=== PATIENT | male | born 1995 | race Hispanic/Latino ===

== ENCOUNTER → 2023-06-21 | Emergency (ER) | payer OTHER ==
[~2023-06-21] MED LIST: FAMOTIDINE 20 MG/2 ML VIAL IV ONE; MAGNESIUM CITRATE 300 ML BOT ONE; NA CHLORIDE 0.9% 1,000 ML ONE
[2023-06-21 19:38] LABS: Hematocrit 39.3 % (39.6-49.0); Lymphocytes % 26.6 % (15.3-44.8); MCV 86.8 fL (80-100); MPV 7.7 fL (7.6-11.3); Platelets 357 thou/uL (152-406); RBC Red Blood Cell Count 4.53 M/uL (4.33-5.43)
[2023-06-21 19:47] LABS: Albumin 3.7 g/dL (3.4-5.0); Bilirubin Total 0.5 mg/dL (0.2-1.0); Potassium 4.6 mEq/L (3.5-5.1); Protein, Total 7.7 g/dL (6.4-8.2)
--- NOTE | 2023-06-21 20:25 | RAD REPORT ---
EXAM DESCRIPTION: CTAbdomen Pelvis W Contrast - 06/21/2023 8:18 pm CLINICAL HISTORY: Abdominal pain. ABD PAIN COMPARISON: No comparisons TECHNIQUE: Biphasic CT imaging of the abdomen and pelvis was performed with 100 ml non-ionic IV cont rast. All CT scans are performed using dose optimization technique as appropriate and may include automated exposure control or mA/KV adjustment according to patient size. FINDINGS: The lung bases are clear. The liver, spleen, pancreas, adrenal glands and kidneys are within normal limits. No bowel obstruction, free air, free fluid or abscess. Prominent stool is retained throughout the col on. The appendix is normal. No evidence of significant lymphadenopathy. No suspicious bony findings. IMPRESSION: No acute intra-abdominal or pelvic finding. Prominent constipation.
--- NOTE | 2023-06-21 20:43 | ER ---
Nurse's Notes [facility] Name: Marcelo Schmitt Age: 27 yrs Sex: Male : 1995 Arrival Date: 06/21/2023 Time: 18:30 Bed 20 Private MD: Diagnosis: Constipation Presentation: 06/21 18:39 Chief complaint: Patient states: Abdominal pain for 4 days, no BM for 3 days. No fever. ll1 Coronavirus screen: Client denies travel out of the [place] in the last 14 days. At this time, the client does not indicate any symptoms associated with coronavirus-19. Ebola Screen: Patient denies travel to an Ebola-affected area in the 21 days before illness onset. Initial Sepsis Screen: Does the patient meet any 2 criteria? No. Patient's initial sepsis screen is negative. Does the patient have a suspected source of infection? Yes: Acute abdominal pain. Risk Assessment: Do you want to hurt yourself or someone else? Patient reports no desire to harm self or others. Onset of symptoms was June 18, 2023. 18:39 Method Of Arrival: Law Enforcement: correctional managed ll1 18:39 Acuity: LAUREN 3 ll1 Historical: - Allergies: 18:40 PENICILLINS; ll1 - PMHx: 18:40 None; ll1 - PSHx: 18:40 None; ll1 - Immunization history:: Adult Immunizations up to date. - Social history:: Smoking status: Patient denies any tobacco usage or history of. Screenin:24 [facility] ED Fall Risk Assessment (Adult) History of falling in the last 3 months, lg3 including since admission No falls in past 3 months (0 pts). Abuse screen: Denies threats or abuse. Denies injuries from another. Nutritional screening: No deficits noted. Tuberculosis screening: No symptoms or risk factors identified. Assessment: 19:20 General: Appears comfortable, Behavior is calm, cooperative. Pain: Complains of pain in ha1 abdomen Pain does not radiate. Pain currently is 7 out of 10 on a pain scale. Neuro: Level of Consciousness is awake, alert, obeys commands, Oriented to person, place, time, situation. Cardiovascular: Patient's skin is warm and dry. Respiratory: Airway is patent Respiratory effort is even, unlabored, Respiratory pattern is regular, symmetrical. GI: Abdomen is round non-distended, Bowel sounds present X 4 quads. Abd is soft and non tender X 4 quads. Derm: Skin is normal. 21:23 Reassessment: Patient appears in no apparent distress at this time. No changes from lg3 previously documented assessment. Patient and/or family updated on plan of care and expected duration. Pain level reassessed. Patient is alert, oriented x 3, equal unlabored respirations, skin warm/dry/pink. Vital Signs: 18:39 BP 155 / 102; Pulse 69; Resp 17; Temp 98.3(O); Pulse Ox 95% on R/A; Weight 85.73 kg; ll1 Height 5 ft. 3 in. ; Pain 0/10; 21:24 BP 141 / 89; Pulse 72; Resp 17 S; Temp 98.6(TE); Pulse Ox 98% on R/A; lg3 18:39 Body Mass Index 33.48 (85.73 kg, 160.02 cm) ll1 18:39 Pain Scale: Adult ll1 ED Course: 18:34 Patient arrived in ED. ll1 18:35 Arm band placed on Patient placed in an exam room, on a stretcher. ll1 18:36 [facility] Stanley F[facility]-C [facility] kb 18:36 Jerica Kendrick MD is Attending Physician. kb 18:40 Triage completed. ll1 19:21 Meaghan Roberto, RN is Primary Nurse. ha1 19:26 CBC with Diff Sent. ha1 19:26 CMP Sent. ha1 19:26 Lipase Sent. ha1 20:[address] via stretcher. nj 20:20 CT Abd/Pelvis - IV Contrast Only In Process Unspecified. EDMS 20:24 CT completed. Patient tolerated procedure well. nj 20:26 Patient moved back from CT. nj 21:24 Patient has correct armband on for positive identification. lg3 21:24 No provider procedures requiring assistance completed. IV discontinued, intact, lg3 bleeding controlled, No redness/swelling at site. Pressure dressing applied. Administered Medications: 19:26 Drug: NS 0.9% IV 1000 ml IV at 1 bolus Per protocol; 1000 mL bolus Route: IV; Rate: 1 ha1 bolus; Site: right antecubital; 21:23 Follow up: IV Status: Completed infusion; IV Intake: 1000ml lg3 19:26 Drug: Famotidine IVP 20 mg IVP once; dilute with 10 mL 0.9% NaCl; give over 2 minutes ha1 Route: IVP; Site: right antecubital; 21:23 Follow up: Response: No adverse reaction lg3 20:47 Drug: Magnesium Citrate PO Liquid 300 ml PO once Route: PO; as9 21:23 Follow up: Response: No adverse reaction lg3 Medication: 21:24 VIS not applicable for this client. lg3 Intake: 21:23 IV: 1000ml; Total: 1000ml. lg3 Outcome: 20:42 Discharge ordered by MD. lezama 21:24 Discharged to [facility] lg3 21:24 Condition: stable 21:24 Discharge instructions given to patient, Instructed on discharge instructions, follow up and referral plans. Demonstrated understanding of instructions, follow-up care, 21:25 Patient left the ED. lg3 Signatures: Dispatcher [employer] EDMS Radha Stanley, PECAN GATHERER-C PECAN GATHERER-Ckb Charles Jamison Lacie RN RN lg3 Nimisha Riddle RN RN ll1 Meaghan Roberto RN RN ha1 Francisco Santiago, HILARY RN as9
--- NOTE | 2023-06-21 20:43 | EDPHYS ---
Physician Documentation [facility] Name: Marcelo Schmitt Age: 27 yrs Sex: Male : 1995 Arrival Date: 06/21/2023 Time: 18:30 Bed 20 Private MD: ED Physician Jerica Kendrick HPI: 06/21 20:40 This 27 yrs old Male presents to ER via Law Enforcement with complaints of kb Abdominal Pain. 20:40 Pt is a 27 year old male who presents for abd pain for 4 days and constipation. States kb pain is worse after eating. States he had a small BM this morning. Reports pain is to upper abd. Denies n/v, fever. Historical: - Allergies: 18:40 PENICILLINS; ll1 - PMHx: 18:40 None; ll1 - PSHx: 18:40 None; ll1 - Immunization history:: Adult Immunizations up to date. - Social history:: Smoking status: Patient denies any tobacco usage or history of. ROS: 20:41 Constitutional: Negative for fever, chills, and weight loss, kb 20:41 Abdomen/GI: Positive for abdominal pain, constipation, Negative for nausea and vomiting, 20:41 All other systems are negative, Exam: 20:41 Constitutional: This is a well developed, well nourished patient who is awake, alert, kb and in no acute distress. Head/Face: Normocephalic, atraumatic. ENT: Moist Mucous membranes Cardiovascular: Regular rate Respiratory: Respirations even and unlabored. No increased work of breathing. Talking in full sentences Skin: Warm, dry with normal turgor. Normal color. MS/ Extremity: Pulses equal, no cyanosis. Neurovascular intact. Full, normal range of motion. Neuro: Awake and alert, GCS 15, oriented to person, place, time, and situation. Moves all extremities. Normal gait. 20:41 Abdomen/GI: Inspection: abdomen appears normal, Bowel sounds: normal, Palpation: soft, in all quadrants, mild abdominal tenderness, in the left upper quadrant, Vital Signs: 18:39 BP 155 / 102; Pulse 69; Resp 17; Temp 98.3(O); Pulse Ox 95% on R/A; Weight 85.73 kg; ll1 Height 5 ft. 3 in. ; Pain 0/10; 21:24 BP 141 / 89; Pulse 72; Resp 17 S; Temp 98.6(TE); Pulse Ox 98% on R/A; lg3 18:39 Body Mass Index 33.48 (85.73 kg, 160.02 cm) ll1 18:39 Pain Scale: Adult ll1 MDM: 18:36 Patient medically screened. kb 20:41 Differential diagnosis: bowel obstruction, cholecystitis, Cholelithiasis, kb diverticulitis, constipation. Data reviewed: vital signs, nurses notes. Counseling: I had a detailed discussion with the patient and/or guardian regarding the historical points, exam findings, and any diagnostic results supporting the discharge/admit diagnosis, lab results, radiology results, the need for outpatient follow up, a family practitioner, to return to the emergency department if symptoms worsen or persist or if there are any questions or concerns that arise at home. 06/21 18:36 Order name: CBC with Diff; Complete Time: 19:53 kb 06/21 18:36 Order name: CMP; Complete Time: 19:53 kb 06/21 18:36 Order name: Lipase; Complete Time: 19:53 kb 06/21 18:36 Order name: CT Abd/Pelvis - IV Contrast Only; Complete Time: 20:28 kb 06/21 18:36 Order name: IV Saline Lock; Complete Time: 19:21 kb 06/21 18:36 Order name: Labs collected and sent; Complete Time: 19:21 kb Administered Medications: 19:26 Drug: NS 0.9% IV 1000 ml IV at 1 bolus Per protocol; 1000 mL bolus Route: IV; Rate: 1 ha1 bolus; Site: right antecubital; 21:23 Follow up: IV Status: Completed infusion; IV Intake: 1000ml lg3 19:26 Drug: Famotidine IVP 20 mg IVP once; dilute with 10 mL 0.9% NaCl; give over 2 minutes ha1 Route: IVP; Site: right antecubital; 21:23 Follow up: Response: No adverse reaction lg3 20:47 Drug: Magnesium Citrate PO Liquid 300 ml PO once Route: PO; as9 21:23 Follow up: Response: No adverse reaction lg3 Disposition Summary: 06/21/23 20:42 Discharge Ordered Notes: Location: Home kb Condition: Stable kb Diagnosis - Constipation kb Followup: kb - With: Emergency Department - When: As needed - Reason: Worsening of condition Followup: kb - With: Private Physician - When: 2 - 3 days - Reason: Recheck today's complaints, Continuance of care, Re-evaluation by your physician Discharge Instructions: - Discharge Summary Sheet kb - Constipation, Adult, [id number] kb Forms: - Medication Reconciliation Form kb - Thank You Letter kb - Antibiotic Education kb - Prescription Opioid Use kb - Patient Portal Instructions kb - Leadership Thank You Letter kb Signatures: Dispatcher [employer] EDRadha Modi, ADRIÁN-C OUTSIDE SALES ACCOUNT REPRESENTATIVE-Nimisha Cates, RN RN ll1 Meaghan Roberto RN RN ha1 Francisco Santiago RN RN as9 Gretel Clemens RN lg3
[2023-06-21 21:52] VITALS: BP 141/89; TEMP 98.6; O2SAT 98
== END ==
LOC: ER 18:30
DX: K59.00 Constipation, unspecified (principal); Z88.0 Allergy status to penicillin
CPT/HCPCS: 85025; 36415; 83690; 80053; 74177; Q9967; J7030